=== PATIENT | female | born 1975 | race Two or more races ===

== ENCOUNTER 2017-07-25 01:08 | Emergency (ER) | payer OTHER ==
[~2017-07-25] VITALS: Ht 170.2 cm; Wt 60.8 kg
[~2017-07-25 01:08] MED LIST: FOLIC ACID1 MG PO; SKELAXIN800 MG PO; SYNTHROID150 MCG
[2017-07-25] MEDS ORDERED: ESTRADIOL1 EAC1 (01:15)
[2017-07-25] MEDS ORDERED: PROGESTERONA (01:15)
== END 2017-07-25 07:40 | disposition home or self-care (01) ==
LOC: ER 01:08
DX: N83.292 Other ovarian cyst, left side (principal); N83.291 Other ovarian cyst, right side

== ENCOUNTER 2018-02-27 22:49 | Emergency (ER) | payer OTHER ==
[~2018-02-27] VITALS: Ht 170.2 cm; Wt 68.9 kg
[~2018-02-27 22:49] MED LIST changes: +ESTRADIOL1 EAC1; +PROGESTERONA
[2018-02-28] MEDS ORDERED: ACID CONTROL150 MG PO (04:37)
== END 2018-02-28 04:35 | disposition home or self-care (01) ==
LOC: ER 22:49
DX: O26.891 Other specified pregnancy related conditions, first trimester (principal); R10.0 Acute abdomen; Z34.81 Encounter for supervision of other normal pregnancy, first trimester

== ENCOUNTER 2018-07-14 09:31 | Outpatient (CLI) | payer OTHER ==
[~2018-07-14 09:31] MED LIST changes: +ACID CONTROL150 MG PO
== END 2018-07-14 09:44 | disposition home or self-care (01) ==
LOC: RAD 09:31
DX: R07.81 Pleurodynia (principal)

== ENCOUNTER 2018-12-11 12:26 | Outpatient (CLI) | payer OTHER | END 2018-12-11 12:30 | disposition home or self-care (01) | LOC: LAB 12:26 | DX: E03.8 Other specified hypothyroidism (principal) ==

== ENCOUNTER 2020-12-28 00:33 | Emergency (ER) | payer OTHER ==
[~2020-12-28] VITALS: Ht 170.2 cm; Wt 72.6 kg
[2020-12-28] MEDS ORDERED: PRENA1 TRUE CO1 EACH (00:48)
== END 2020-12-28 04:43 ==
LOC: ER 00:33
DX: R00.2 Palpitations (principal)

== ENCOUNTER 2021-07-27 10:05 | Outpatient (CLI) | payer OTHER ==
[~2021-07-27 10:05] MED LIST changes: +PRENA1 TRUE CO1 EACH
== END 2021-07-27 10:35 | disposition home or self-care (01) ==
LOC: LAB 10:05
PROVIDERS: ATTEND Otolaryngology Otology & Neurotology
DX: D11.0 Benign neoplasm of parotid gland (principal)

== ENCOUNTER 2021-07-28 10:07 | Outpatient (CLI) | payer OTHER | END 2021-07-28 10:08 | disposition home or self-care (01) | LOC: TOM 10:07 | PROVIDERS: ATTEND Otolaryngology Otology & Neurotology | DX: D11.0 Benign neoplasm of parotid gland (principal) ==

== ENCOUNTER 2021-07-29 11:17 | Outpatient (CLI) | payer OTHER | END 2021-07-29 11:20 | disposition home or self-care (01) | LOC: SONOGRAMA 11:17 | PROVIDERS: ATTEND Pathology Anatomic Pathology & Clinical Pathology | DX: D11.0 Benign neoplasm of parotid gland (principal) ==

== ENCOUNTER → 2022-06-27 12:04 | Outpatient (CLI) | payer OTHER | END | disposition home or self-care (01) | LOC: LAB 12:04 | PROVIDERS: ATTEND Pediatrics | DX: J11.1 Influenza due to unidentified influenza virus with other respiratory manifestations (principal); R50.9 Fever, unspecified ==